=== PATIENT | female | born 1995 | race Caucasian/White ===

== ENCOUNTER 2023-12-29 07:37 | Emergency (ER) | payer OTHER ==
[~2023-12-29] VITALS: Ht 162.6 cm; Wt 57.2 kg
[2023-12-29 07:44] VITALS: BP 128/66; TEMP 98.7
[2023-12-29 07:56] VITALS: O2SAT 100
== END 2023-12-29 08:06 | disposition home or self-care (01) ==
LOC: ER 07:37
DX: M25.511 Pain in right shoulder (principal)